=== PATIENT | male | born 1940 | race Caucasian/White ===

== ENCOUNTER → 2017-05-28 | Outpatient (CLI) | payer OTHER ==
[~2017-05-28] MED LIST: ASPI81TA28 PO; CYAN50TA2 PO; DOCU-94 PO; FURO40TA3 PO; INSDGI SC; LISI-461 PO; LUTE15CA PO; MISCTAB78 PO; NTRGSL/4 UT; TAMS0.4C38 PO; TNR50 PO
--- NOTE | 2017-05-28 10:00 | DIAGNOSTIC IMAGING REPORT ---
GI SERIES W/O KUB CLINICAL HISTORY: Epigastric pain. COMPARISON STUDY: None FLUOROSCOPY TIME: 2.1 minutes. NUMBER OF FLUOROSCOPIC IMAGES: 26 FINDINGS: The study was very difficult from a technical standpoint as the patient was nonmobile. There is disordered esophageal motility. No esophageal masses are visualized. No gastric masses are evident. There is no gastric outlet obstruction. The duodenal bulb appears normal. Ligament Treitz is located in the normal anatomical position. IMPRESSION: Technically limited study. No gastric or esophageal masses. Esophageal dysmotility. Electronically signed by: Tono Garcia M.D. 05/28/2017 9:59 AM Dictated Date/Time: 05/28/2017 9:57 AM
== END | disposition home or self-care (01) ==
LOC: C.RAD 09:08
PROVIDERS: ATTEND Family Medicine
DX: R13.10 Dysphagia, unspecified (principal)

== ENCOUNTER 2018-03-20 10:10 | Inpatient (IN) | payer OTHER ==
[~2018-03-20] VITALS: Ht 175.3 cm; Wt 121.0 kg
[2018-03-20] MEDS ORDERED: SODIUM CHLORIDE 0.9% 1000ML 500 ML IV ONE (10:20)
[2018-03-20] MEDS ORDERED: PIPERACILLIN/TAZOBACTAM 4.5 GM/100ML D5W IV STA (10:20)
--- NOTE | 2018-03-20 10:43 | DIAGNOSTIC IMAGING REPORT ---
CHEST ONE VIEW PORTABLE CLINICAL HISTORY: Sepsis COMPARISON STUDY: No previous studies for comparison. FINDINGS: There are postsurgical changes of midline sternotomy. The heart is at the upper limits of normal in size. There is borderline elevation right hemidiaphragm. There is no focal pulmonary consolidation. There is no failure. There are no pleural effusions.[ IMPRESSION: No active disease in the chest. Electronically signed by: Tono Garcia M.D. 03/20/2018 10:42 AM Dictated Date/Time: 03/20/2018 10:41 AM
[2018-03-20] MEDS ORDERED: ATOR-22 PO (10:46)
[2018-03-20] MEDS ORDERED: INSDGIPEN SC (10:46)
[2018-03-20 11:16] LABS: BASO % 0.2 %; BASO ABS # 0.02 K/uL (0-0.2); HEMATOCRIT 40.2 % (42-52); HEMOGLOBIN 13.5 g/dL (14.0-18.0); IG# 0.06 K/uL (0.00-0.02); LYMPH % 8.4 %; LYMPH ABS # 0.99 K/uL (1.2-3.4); MEAN CORPUSCULAR HEMOGLOBIN 31.9 pg (25-34); MEAN CORPUSCULAR HGB CONC 33.6 g/dl (32-36); MEAN PLATELET VOLUME 9.4 fL (7.4-10.4); MONO % 11.3 %; MONO ABS # 1.34 K/uL (0.11-0.59); NEUT % 79.6 %; NEUT ABS # 9.43 K/uL (1.4-6.5); PLATELET COUNT 212 K/uL (130-400); RED CELL DISTRIBUTION WIDTH CV 13.7 % (11.5-14.5); WHITE BLOOD COUNT 11.84 K/uL (4.8-10.8)
[2018-03-20 11:24] LABS: PTT PATIENT 25.2 SECONDS (21.0-31.0)
--- NOTE | 2018-03-20 11:36 | DIAGNOSTIC IMAGING REPORT ---
HEAD WITHOUT CONTRAST (CT) CLINICAL HISTORY: 77 years-old Male with confusion, fall. Acute confusion status post fall with head injury TECHNIQUE: Multiple axial CT images of the head were obtained without contrast. A dose lowering technique was utilized adhering to the principles of ALARA. CT DOSE: 1396.29 mGycm COMPARISON: CT head 04/16/2016. FINDINGS: Motion. Exam. No acute intracranial hemorrhage, midline shift, intracranial mass, hydrocephalus, territorial ischemia or abnormal extra-axial collection. Atrophy with mild ex vacuo ventriculomegaly and chronic microvascular ischemic changes redemonstrated. Cerebral vascular calcifications are noted. The calvarium is intact. The paranasal sinuses, mastoid air cells, and middle ear cavities are clear. IMPRESSION: No acute intracranial abnormality. The above report was generated using voice recognition software. It may contain grammatical, syntax or spelling errors. Electronically signed by: Jj Castillo M.D. 03/20/2018 11:34 AM Dictated Date/Time: 03/20/2018 11:32 AM
--- NOTE | 2018-03-20 11:37 | DIAGNOSTIC IMAGING REPORT ---
LUMBAR SPINE WITHOUT CLINICAL HISTORY: Back pain following fall. COMPARISON STUDY: Lumbar spine CT April 16, 2016. TECHNIQUE: Axial images of the lumbar spine were obtained without IV contrast. Sagittal and coronal reconstructions were viewed. FINDINGS: Exam is moderately compromised by artifact. Grade one anterolisthesis of L5 on S1 is unchanged since CT of April 16, 2016. This is due to bilateral L5 pars defects. Old mild compression deformity involving the inferior endplate of L2 is noted. There is extensive anterior osteophytosis. No acute lumbar spine fracture is identified. Central canal and neural foramen are suboptimally assessed by CT. No paravertebral hematomas identified. A probable small left renal calculus is noted without hydronephrosis. Sacroiliac joints are intact. IMPRESSION: 1. No acute lumbar spine fracture or subluxation identified. 2. Study mildly compromised by artifact. 3. Old L2 compression fracture with minimal loss of vertebral body height. 4. Grade I anterolisthesis of L5 on S1 due to bilateral L5 pars defects. This is unchanged. 5. Moderate multilevel degenerative disc disease and severe multilevel facet arthrosis of the lumbar spine. Electronically signed by: Avinash Ball M.D. 03/20/2018 11:36 AM Dictated Date/Time: 03/20/2018 11:30 AM
[2018-03-20 11:39] LABS: ALBUMIN 3.8 gm/dl (3.4-5.0); CALCIUM 9.5 mg/dl (8.5-10.1); CREATININE 1.23 mg/dl (0.60-1.40); POTASSIUM 4.2 mmol/L (3.5-5.1); TOTAL PROTEIN 8.3 gm/dl (6.4-8.2)
[2018-03-20] MEDS ORDERED: MoRPHine SULFATE 4 MG/ML 1 ML CARP\\VIAL IV STA (11:50)
[2018-03-20] MEDS ORDERED: SODIUM CHLORIDE 0.9% 500ML 500 ML IV STA (12:28)
[2018-03-20] MEDS ORDERED: ONDANSETRON INJ 2 MG/ML 2 ML VIAL IV PRN (13:30)
[2018-03-20] MEDS ORDERED: CONSULT PHARMACY STA (13:52)
[2018-03-20] MEDS ORDERED: ATORVASTATIN 20 MG TAB PO ONE (13:56)
[2018-03-20] MEDS ORDERED: LISINOPRIL 10 MG TAB PO ONE (13:56)
[2018-03-20] MEDS ORDERED: ASPIRIN 81 MG ECTAB PO ONE (13:56)
[2018-03-20] MEDS ORDERED: TAMSULOSIN HCL 0.4 MG CAP PO ONE (13:56)
[2018-03-20] MEDS ORDERED: GLUCAGON FOR INJ 1 MG VIAL SQ PRN (14:00)
[2018-03-20] MEDS ORDERED: CARBOHYDRATES FOR HYPOGLYCEMIA PO PRN (14:00)
[2018-03-20] MEDS ORDERED: DEXTROSE 50% 50 ML SYR IV PRN (14:00)
[2018-03-20] MEDS ORDERED: GLUCOSE 10 TABS/TUBE PO PRN (14:00)
[2018-03-20] MEDS ORDERED: GLUCOSE 40% GEL 15 GM TUBE PO PRN (14:00)
[2018-03-20] MEDS ORDERED: DOCUSATE SODIUM 100 MG CAP PO PRN (14:00)
[2018-03-20 14:18] VITALS: O2SAT 96; Ht 175.3 cm; Wt 121.0 kg
[2018-03-20] MEDS ORDERED: PIPERACILL/TAZOBAC CONSULT ACTIVE PRN (14:30)
[2018-03-20] MEDS ORDERED: VANCOMYCIN CONSULT ACTIVE PRN (14:30)
[2018-03-20] MEDS ORDERED: VANCOMYCIN IV 2,750 MG in SODIUM CHLORIDE 0.9% 500ML 500 ML IV ONE (14:30)
[2018-03-20 14:40] VITALS: BP 184/69; PULSE 77; TEMP 36.7; O2SAT 96
--- NOTE | 2018-03-20 14:57 | Pharmacy Progress Note ---
Pharmacy Abx Initial Consult Date of Service Mar 20, 2018. Pharmacy Dosing Scope Date of Consult: 03/20/18 Consultation requested by: BLADIMIR [facility] is consulted to initiate Zosyn and Vancomycin IV dosing therapy, order appropriate labs and adjust drug dose/frequency. Subjective The patient is a 77 year old male admitted on Mar 20, 2018 at 13:32. Objective Height (Feet): 5 Height (Inches): 9.00 Weight (Kilograms): 121.000 Vital Signs (Past 12Hrs) Vital Signs Past 12 Hours Date Time Temp Pulse Resp B/P (MAP) Pulse Ox O2 Delivery O2 Flow Rate FiO2 03/20/18 14:18 96 Room Air 03/20/18 14:02 68 24 146/78 96 Room Air 03/20/18 11:40 73 16 176/94 93 Room Air 03/20/18 10:29 78 03/20/18 10:27 94 Room Air 03/20/18 10:19 36.8 82 18 170/111 95 Room Air Lab Results (24Hrs) Laboratory Tests (24 Hours) Test 03/20/18 10:55 White Blood Count 11.84 K/uL (4.8-10.8) H Red Blood Count 4.23 M/uL (4.7-6.1) L Hemoglobin 13.5 g/dL (14.0-18.0) L Hematocrit 40.2 % (42-52) L Mean Corpuscular Volume 95.0 fL (80-100) Mean Corpuscular Hemoglobin 31.9 pg (25-34) Mean Corpuscular Hemoglobin Concent 33.6 g/dl (32-36) Platelet Count 212 K/uL (130-400) Mean Platelet Volume 9.4 fL (7.4-10.4) Neutrophils (%) (Auto) 79.6 % Lymphocytes (%) (Auto) 8.4 % Monocytes (%) (Auto) 11.3 % Eosinophils (%) (Auto) 0.0 % Basophils (%) (Auto) 0.2 % Neutrophils # (Auto) 9.43 K/uL (1.4-6.5) H Lymphocytes # (Auto) 0.99 K/uL (1.2-3.4) L Monocytes # (Auto) 1.34 K/uL (0.11-0.59) H Eosinophils # (Auto) 0.00 K/uL (0-0.5) Basophils # (Auto) 0.02 K/uL (0-0.2) Total Creatine Kinase 344 U/L (39-308) H Micro Results Date/Time Source Procedure Growth Status 03/20/18 10:55 Blood Blood Culture Pending Received 03/20/18 10:50 Blood Blood Culture Pending Received Assessment & Plan Assessment 77 year old male admitted with cellulitis Plan IV Zosyn and Vancomycin for treatment of cellulitis/SSTI, blood cultures pending Vancomycin IV * Loading dose: 2750 mg (~25 mg/kg) * Maintenance dose: 1250 mg IV (~11 mg/kg) every 14 hours * Estimated PK Parameters: ke: 0.056 hr-1, T1/2: ~12hr * Goal trough level for 15 to 20 mcg/mL * Trough level ordered for 03/22/2018 before 0800 dose, but may obtain sooner if pt appears to be accumulating. * A less than traditional dose has been selected due to likelihood of drug accumulation in obese patient (BMI >35 kg/m2) Piperacillin/tazobactam * 4.5 g bolus administered over 30 minutes, then 4.5 g IV extended infusion every 8 hours for CrCl greater than 20 mL/min * Aggressive dosing selected due to BMI >35 kg/m2 Pharmacy will continue to follow and will adjust dose/frequency as necessary. Thank you.
[2018-03-20 15:27] VITALS: BP 149/77; PULSE 66; TEMP 36.4; O2SAT 96
[2018-03-20] MEDS: HEPARIN SOD 5000 UNIT/0.5 ML CARP SQ SCH ×2 (15:37→21:20)
[2018-03-20] MEDS: PIPERACILL/TAZOBAC IV 4.5 GM in DEXTROSE 5% 100ML 100 ML IV SCH ×2 (15:39→23:47)
[2018-03-20 16:00] VITALS: O2SAT 91
--- NOTE | 2018-03-20 16:06 | History and Physical ---
History & Physical Date & Time of Service: Mar 20, 2018 at 15:50 Chief Complaint: Fall Primary Care Physician: José Manuel Chisholm M.D. History of Present Illness 69-year-old male who presents the ED after a fall. Patient reports he was getting ready to go to bed last evening in his recliner chair where he typically sleeps and slipped on the carpeting and fell over the arm of the chair into the fireplace. He denies associated lightheadedness, dizziness, syncopal event. He did not strike his head. Patient reports he was unable to get up. He crawled around on the floor however was still unable to stand. He did not call for help. His found him this morning. About 2 weeks ago, patient was at the beach and he suffered a sunburn to his left leg. He reports it blistered and he was picking at the skin. He reports he has not felt well since having the sunburn. His leg has been painful. He denies having fevers and chills. He reports some chest wall pain after the fall. He denies shortness of breath. No abdominal pain, nausea, vomiting, diarrhea. He denies any urinary symptoms. In the ED, patient's imaging is negative for acute findings. Exam is notable for a left lower extremity cellulitis. WBC is 11.8K and vitals are stable. Patient was given IVF, IV morphine, IV Zosyn. Past Medical/Surgical History Medical Problems: (1) BPH (benign prostatic hyperplasia) Status: Chronic (2) CAD (coronary artery disease) Status: Chronic (3) CKD (chronic kidney disease), stage III Status: Chronic (4) Diastolic CHF due to valvular disease Status: Chronic (5) DM type 2 (diabetes mellitus, type 2) Status: Chronic (6) Hyperlipidemia Status: Chronic (7) Hypertension Status: Chronic Surgical Problems: (1) History of cataract surgery Status: Chronic (2) History of total left hip replacement Status: Chronic (3) History of total right hip replacement Status: Chronic (4) S/P aortic valve replacement with bioprosthetic valve Status: Chronic (5) S/P CABG x 5 Permanent Comment: 2016 Status: Chronic Family History Noncontributory secondary to patient's advanced age Social History Smoking Status: Never Smoker Alcohol Use: none Marital Status: Housing status: lives with family Immunizations History of Influenza Vaccine: Yes Influenza Vaccine Date: May 09, 2017 History of Tetanus Vaccine?: Yes Tetanus Immunization Date: Oct 03, 2004 History of Pneumococcal: Yes Pneumococcal Date: Oct 27, 2014 Allergies Coded Allergies: Cephalexin (Unverified Allergy, Intermediate, RASH, 03/20/18) Nifedipine (Unverified Allergy, Intermediate, GI SYMPTOMS, 03/20/18) Home Medications Scheduled Aspirin (Aspirin Ec), 162 MG PO DAILY Atenolol (Atenolol), 50 MG PO DAILY Atorvastatin (Lipitor), 20 MG PO DAILY Cyanocobalamin (Vitamin B-12), 500 MG PO DAILY Furosemide (Lasix), 40 MG PO Q2D Insulin Glargine (Lantus Solostar), 20 UNITS SC HS Lisinopril (Lisinopril), 10 MG PO DAILY Lutein-Zeaxanthin (Lutein), 1 CAP PO DAILY Misc Natural Products (Osteo Bi-Flex Advanced Do), 1 CAP PO DAILY Nitroglycerin (Nitrostat), 0.4 MG UT PRN Tamsulosin Hcl (Flomax), 0.4 MG PO DAILY Scheduled PRN Docusate Sodium (Colace), 100 MG PO BID PRN for Constipation Review of Systems ROS per HPI, all other systems reviewed and negative Physical Exam Vital Signs Date Time Temp Pulse Resp B/P (MAP) Pulse Ox O2 Delivery O2 Flow Rate FiO2 03/20/18 15:27 36.4 66 20 149/77 (101) 96 Nasal Cannula 2.0 03/20/18 14:40 36.7 77 18 184/69 (107) 96 Nasal Cannula 03/20/18 14:18 96 Room Air 03/20/18 14:02 68 24 146/78 96 Room Air 03/20/18 11:40 73 16 176/94 93 Room Air 03/20/18 10:29 78 03/20/18 10:27 94 Room Air 03/20/18 10:19 36.8 82 18 170/111 95 Room Air General Appearance: WD/WN, no apparent distress Head: normocephalic, atraumatic Eyes: normal inspection, EOMI, sclerae normal ENT: hearing grossly normal, + pertinent finding (Mucous members moist) Neck: supple, no JVD, trachea midline Respiratory/Chest: no respiratory distress, + decreased breath sounds Cardiovascular: regular rate, rhythm, normal peripheral pulses, + pertinent finding (+1-2 edema BLE) Abdomen/GI: normal bowel sounds, non tender, soft, no organomegaly Extremities/Musculoskelatal: normal inspection, no calf tenderness, normal capillary refill Neurologic/Psych: no motor/sensory deficits, alert, normal mood/affect, oriented x 3 Skin: warm/dry, + pertinent finding (Erythema noted to the left lower extremity extending from the ankle to the knee, extremity warm to touch, dried scabbed over wounds noted to the ankle area without drainage) Diagnostics Laboratory Results Results Past 24 Hours Test 03/20/18 10:55 03/20/18 12:57 Range/Units White Blood Count 11.84 4.8-10.8 K/uL Red Blood Count 4.23 4.7-6.1 M/uL Hemoglobin 13.5 14.0-18.0 g/dL Hematocrit 40.2 42-52 % Mean Corpuscular Volume 95.0 80-100 fL Mean Corpuscular Hemoglobin 31.9 25-34 pg Mean Corpuscular Hemoglobin Concent 33.6 32-36 g/dl Platelet Count 212 130-400 K/uL Mean Platelet Volume 9.4 7.4-10.4 fL Neutrophils (%) (Auto) 79.6 % Lymphocytes (%) (Auto) 8.4 % Monocytes (%) (Auto) 11.3 % Eosinophils (%) (Auto) 0.0 % Basophils (%) (Auto) 0.2 % Neutrophils # (Auto) 9.43 1.4-6.5 K/uL Lymphocytes # (Auto) 0.99 1.2-3.4 K/uL Monocytes # (Auto) 1.34 0.11-0.59 K/uL Eosinophils # (Auto) 0.00 0-0.5 K/uL Basophils # (Auto) 0.02 0-0.2 K/uL RDW Standard Deviation 47.0 36.4-46.3 fL RDW Coefficient of Variation 13.7 11.5-14.5 % Immature Granulocyte % (Auto) 0.5 % Immature Granulocyte # (Auto) 0.06 0.00-0.02 K/uL Prothrombin Time 10.8 9.0-12.0 SECONDS Prothromb Time International Ratio 1.0 0.9-1.1 Activated Partial Thromboplast Time 25.2 21.0-31.0 SECONDS Partial Thromboplastin Ratio 1.0 Urine Color YELLOW Urine Appearance CLEAR CLEAR Urine pH 6.0 4.5-7.5 Urine Specific [place] 1.018 1.000-1.030 Urine Protein TRACE NEG Urine Glucose (UA) NEG NEG Urine Ketones TRACE NEG Urine Occult Blood NEG NEG Urine Nitrite NEG NEG Urine Bilirubin NEG NEG Urine Urobilinogen NEG NEG Urine Leukocyte Esterase NEG NEG Urine WBC (Auto) 1-5 0-5 /hpf Urine RBC (Auto) 0-4 0-4 /hpf Urine Hyaline Casts (Auto) 1-5 0-5 /lpf Urine Epithelial Cells (Auto) 5-10 0-5 /lpf Urine Bacteria (Auto) NEG NEG Sodium Level 143 136-145 mmol/L Potassium Level 4.2 3.5-5.1 mmol/L Chloride Level 104 98-107 mmol/L Carbon Dioxide Level 34 21-32 mmol/L Anion Gap 5.0 3-11 mmol/L Blood Urea Nitrogen 22 7-18 mg/dl Creatinine 1.23 0.60-1.40 mg/dl Est Creatinine Clear Calc Drug Dose 63.6 ml/min Estimated GFR () 64.8 Estimated GFR (Non- 55.9 BUN/Creatinine Ratio 17.9 10-20 Random Glucose 102 70-99 mg/dl Calcium Level 9.5 8.5-10.1 mg/dl Magnesium Level 2.0 1.8-2.4 mg/dl Total Bilirubin 0.7 0.2-1 mg/dl Aspartate Amino Transf (AST/SGOT) 35 15-37 U/L Alanine Aminotransferase (ALT/SGPT) 20 12-78 U/L Alkaline Phosphatase 85 45-117 U/L Total Creatine Kinase 344 39-308 U/L Total Protein 8.3 6.4-8.2 gm/dl Albumin 3.8 3.4-5.0 gm/dl Globulin 4.5 2.5-4.0 gm/dl Albumin/Globulin Ratio 0.9 0.9-2 Chemistry Specimen Hemolysis Bedside Lactic Acid Venous 0.99 0.90-1.70 mmol/L Microbiology Results 03/20/18 Blood Culture, Received Pending 03/20/18 Blood Culture, Received Pending Diagnostic Radiology LUMBAR SPINE CT IMPRESSION: 1. No acute lumbar spine fracture or subluxation identified. 2. Study mildly compromised by artifact. 3. Old L2 compression fracture with minimal loss of vertebral body height. 4. Grade I anterolisthesis of L5 on S1 due to bilateral L5 pars defects. This is unchanged. 5. Moderate multilevel degenerative disc disease and severe multilevel facet arthrosis of the lumbar spine. HEAD CT IMPRESSION: No acute intracranial abnormality CXR IMPRESSION: No active disease in the chest. Impression Assessment and Plan GENERALIZED WEAKNESS, MECHANICAL FALL LEFT LOWER EXTREMITY CELLULITIS -Admit to [facility] -Patient presenting from home after a fall last night and being unable to get up off the floor; was at the beach approximately 2 weeks ago and suffered a sunburn to his left lower extremity and has not felt well since that time -In the ED, imaging negative for acute findings -Significant erythema noted to left lower extremity which is warm to touch -Dried, scabbed over wounds noted to the left ankle that are not currently draining -Do not suspect sepsis; currently afebrile, minimal leukocytosis, negative lactic acid -S/P Zosyn in the ED, will continue with and add on vancomycin -PT/OT evaluations HISTORY OF CAD -Stable, no reports of chest pain -Continue aspirin, statin, beta-katie DIASTOLIC CHF SECONDARY TO VALVULAR DISEASE -Appears euvolemic -Continue home dose of furosemide HISTORY OF BIOPROSTHETIC AORTIC VALVE REPLACEMENT DM TYPE II -Hgb A1c 6.1 04/2017 -Lantus and NovoLog per protocol while hospitalized HYPERTENSION -BP controlled, continue atenolol and lisinopril BPH -Continue tamsulosin DVT PROPHYLAXIS -SQ heparin CODE STATUS -Patient is a full code as per my discussion with him. DISPOSITION -In my clinical judgment this beneficiary meets acute admission criteria, established by [facility], that includes being hospitalized through two midnights. ADDENDUM: This is a 77 year old male with a past medical history of CAD s/p CABG x5, hx. of bioprosthetic aortic valve replacement, DM2, HTN, HLD - presents with a fall. At baseline, he is supposed to be using a walker, but he was not at the time. States he got up at night and ambulated to the bathroom; when he came back, he states he missed the chair that he sleeps in and fell. States he sleeps in a recliner due to back pain. On presentation here, he had erythema LLE, warm to touch. States he had sunburn on his skin and he was picking at his skin afterwards. Plan: Vanco + Zosyn for now, monitor LLE cellulitic changes PT/OT due to ambulation issues may need placement depending on how he does with therapy Advanced Directives Existing Living Will: No Existing Power of Taxicab Dispatcher: No Resuscitation Status VTE Prophylaxis Will order VTE Prophylaxis: Yes
--- NOTE | 2018-03-20 16:20 | EMERGENCY ROOM VISIT NOTE ---
History Report prepared by Ramone: Hitesh Hernandez Under the Supervision of: Dr. Sage Escalante M.D. First contact with patient: 10:12 Stated Complaint: FALL History of Present Illness The patient is a 77 year old male who presents to the Emergency Room with complaints of a resolved fall that occurred last night. EMS reports that the patient fell last night and was found by his this morning. She reports that the patient has become increasingly unsteady. She notes that the patient refuses to use his walker and has been only using a cane. She reports increased confusion and hallucinations in the patient. The patient reports that he attempted to sit into a recliner and missed, hitting half of his body on the recliner and falling. He states that he was unable to stand up and remained on the floor until the morning, when his found him. The patient reports that his lower back is currently sore. He notes that he was experiencing chills on the way to the ER, but states that he always has chills. The patient denies vomiting or diarrhea. The patient reports history of a stroke. He states that it has been a couple months since his previous fall. Source of History: patient, EMS Onset: last night Position: other (general) Quality: other (fall) Timing: resolved Associated Symptoms: + chills, + back pain (lower), No vomiting, No diarrhea Review of Systems See HPI for pertinent positives & negatives. A total of 10 systems reviewed and were otherwise negative. Past Medical & Surgical Medical Problems: (1) BPH (benign prostatic hyperplasia) (2) CAD (coronary artery disease) (3) CKD (chronic kidney disease), stage III (4) Diastolic CHF due to valvular disease (5) DM type 2 (diabetes mellitus, type 2) (6) Hyperlipidemia (7) Hypertension Surgical Problems: (1) History of cataract surgery (2) History of total left hip replacement (3) History of total right hip replacement (4) S/P aortic valve replacement with bioprosthetic valve (5) S/P CABG x 5 Family History Cancer FH: heart disease Hypertension Social History Smoking Status: Never Smoker Drug Use: none Marital Status: Housing Status: lives with family Occupation Status: retired Current/Historical Medications Scheduled Aspirin (Aspirin Ec), 162 MG PO DAILY Atenolol (Atenolol), 50 MG PO DAILY Atorvastatin (Lipitor), 20 MG PO DAILY Cyanocobalamin (Vitamin B-12), 500 MG PO DAILY Furosemide (Lasix), 40 MG PO Q2D Insulin Glargine (Lantus Solostar), 20 UNITS SC HS Lisinopril (Lisinopril), 10 MG PO DAILY Lutein-Zeaxanthin (Lutein), 1 CAP PO DAILY Misc Natural Products (Osteo Bi-Flex Advanced Do), 1 CAP PO DAILY Nitroglycerin (Nitrostat), 0.4 MG UT PRN Tamsulosin Hcl (Flomax), 0.4 MG PO DAILY Scheduled PRN Docusate Sodium (Colace), 100 MG PO BID PRN for Constipation Allergies Coded Allergies: Cephalexin (Unverified Allergy, Intermediate, RASH, 03/20/18) Nifedipine (Unverified Allergy, Intermediate, GI SYMPTOMS, 03/20/18) Physical Exam Vital Signs Date Time Temp Pulse Resp B/P (MAP) Pulse Ox O2 Delivery O2 Flow Rate FiO2 03/20/18 11:40 73 16 176/94 93 Room Air 03/20/18 10:29 78 03/20/18 10:27 94 Room Air 03/20/18 10:19 36.8 82 18 170/111 95 Room Air Physical Exam GENERAL: Patient is in no acute distress. HEENT: No acute trauma, normocephalic atraumatic, mucous membranes moist, no nasal congestion, no scleral icterus. NECK: No stridor, no adenopathy, no meningismus, trachea is midline. LUNGS: Clear to auscultation bilaterally, no wheeze, no rhonchi, breath sounds equal. HEART: Without murmurs gallops or rubs, regular rate and rhythm. ABDOMEN: Soft, nontender, bowel sounds positive, no hernias, no peritonitis. EXTREMITIES: No cyanosis. Moderate bilateral pedal edema with left lower extremity erythema from foot to knee. No drainage. Some warmth is present. Full range of motion of all the joints without pain or difficulty, no signs for acute trauma. BACK: No lumbar contusions, no focal bony tenderness NEUROLOGIC: Oriented x 3, no acute motor or sensory deficits, no focal weakness. SKIN: No rash, no jaundice, no diaphoresis. Medical Decision & Procedures ER Provider Diagnostic Interpretation: Radiology results as stated below per my review and radiologist interpretation: CHEST ONE VIEW PORTABLE CLINICAL HISTORY: Sepsis COMPARISON STUDY: No previous studies for comparison. FINDINGS: There are postsurgical changes of midline sternotomy. The heart is at the upper limits of normal in size. There is borderline elevation right hemidiaphragm. There is no focal pulmonary consolidation. There is no failure. There are no pleural effusions.[ IMPRESSION: No active disease in the chest. Electronically signed by: Tono Garcia M.D. 03/20/2018 10:42 AM Dictated Date/Time: 03/20/2018 10:41 AM HEAD WITHOUT CONTRAST (CT) CLINICAL HISTORY: 77 years-old Male with confusion, fall. Acute confusion status post fall with head injury TECHNIQUE: Multiple axial CT images of the head were obtained without contrast. A dose lowering technique was utilized adhering to the principles of ALARA. CT DOSE: 1396.29 mGycm COMPARISON: CT head 04/16/2016. FINDINGS: Motion. Exam. No acute intracranial hemorrhage, midline shift, intracranial mass, hydrocephalus, territorial ischemia or abnormal extra-axial collection. Atrophy with mild ex vacuo ventriculomegaly and chronic microvascular ischemic changes redemonstrated. Cerebral vascular calcifications are noted. The calvarium is intact. The paranasal sinuses, mastoid air cells, and middle ear cavities are clear. IMPRESSION: No acute intracranial abnormality. The above report was generated using voice recognition software. It may contain grammatical, syntax or spelling errors. Electronically signed by: Jj Castillo M.D. 03/20/2018 11:34 AM Dictated Date/Time: 03/20/2018 11:32 AM LUMBAR SPINE WITHOUT CLINICAL HISTORY: Back pain following fall. COMPARISON STUDY: Lumbar spine CT April 16, 2016. TECHNIQUE: Axial images of the lumbar spine were obtained without IV contrast. Sagittal and coronal reconstructions were viewed. FINDINGS: Exam is moderately compromised by artifact. Grade one anterolisthesis of L5 on S1 is unchanged since CT of April 16, 2016. This is due to bilateral L5 pars defects. Old mild compression deformity involving the inferior endplate of L2 is noted. There is extensive anterior osteophytosis. No acute lumbar spine fracture is identified. Central canal and neural foramen are suboptimally assessed by CT. No paravertebral hematomas identified. A probable small left renal calculus is noted without hydronephrosis. Sacroiliac joints are intact. IMPRESSION: 1. No acute lumbar spine fracture or subluxation identified. 2. Study mildly compromised by artifact. 3. Old L2 compression fracture with minimal loss of vertebral body height. 4. Grade I anterolisthesis of L5 on S1 due to bilateral L5 pars defects. This is unchanged. 5. Moderate multilevel degenerative disc disease and severe multilevel facet arthrosis of the lumbar spine. Electronically signed by: Avinash Ball M.D. 03/20/2018 11:36 AM Dictated Date/Time: 03/20/2018 11:30 AM Laboratory Results 03/20/18 10:55 Red Blood Count 4.23, Mean Corpuscular Volume 95.0, Mean Corpuscular Hemoglobin 31.9, Mean Corpuscular Hemoglobin Concent 33.6, Mean Platelet Volume 9.4, Neutrophils (%) (Auto) 79.6, Lymphocytes (%) (Auto) 8.4, Monocytes (%) (Auto) 11.3, Eosinophils (%) (Auto) 0.0, Basophils (%) (Auto) 0.2, Neutrophils # (Auto ) 9.43, Lymphocytes # (Auto) 0.99, Monocytes # (Auto) 1.34, Eosinophils # (Auto ) 0.00, Basophils # (Auto) 0.02 03/20/18 10:55 Test 03/20/18 10:55 03/20/18 12:57 White Blood Count 11.84 K/uL (4.8-10.8) Red Blood Count 4.23 M/uL (4.7-6.1) Hemoglobin 13.5 g/dL (14.0-18.0) Hematocrit 40.2 % (42-52) Mean Corpuscular Volume 95.0 fL (80-100) Mean Corpuscular Hemoglobin 31.9 pg (25-34) Mean Corpuscular Hemoglobin Concent 33.6 g/dl (32-36) Platelet Count 212 K/uL (130-400) Mean Platelet Volume 9.4 fL (7.4-10.4) Neutrophils (%) (Auto) 79.6 % Lymphocytes (%) (Auto) 8.4 % Monocytes (%) (Auto) 11.3 % Eosinophils (%) (Auto) 0.0 % Basophils (%) (Auto) 0.2 % Neutrophils # (Auto) 9.43 K/uL (1.4-6.5) Lymphocytes # (Auto) 0.99 K/uL (1.2-3.4) Monocytes # (Auto) 1.34 K/uL (0.11-0.59) Eosinophils # (Auto) 0.00 K/uL (0-0.5) Basophils # (Auto) 0.02 K/uL (0-0.2) RDW Standard Deviation 47.0 fL (36.4-46.3) RDW Coefficient of Variation 13.7 % (11.5-14.5) Immature Granulocyte % (Auto) 0.5 % Immature Granulocyte # (Auto) 0.06 K/uL (0.00-0.02) Prothrombin Time 10.8 SECONDS (9.0-12.0) Prothromb Time International Ratio 1.0 (0.9-1.1) Activated Partial Thromboplast Time 25.2 SECONDS (21.0-31.0) Partial Thromboplastin Ratio 1.0 Urine Color YELLOW Urine Appearance CLEAR (CLEAR) Urine pH 6.0 (4.5-7.5) Urine Specific [place] 1.018 (1.000-1.030) Urine Protein TRACE (NEG) Urine Glucose (UA) NEG (NEG) Urine Ketones TRACE (NEG) Urine Occult Blood NEG (NEG) Urine Nitrite NEG (NEG) Urine Bilirubin NEG (NEG) Urine Urobilinogen NEG (NEG) Urine Leukocyte Esterase NEG (NEG) Urine WBC (Auto) 1-5 /hpf (0-5) Urine RBC (Auto) 0-4 /hpf (0-4) Urine Hyaline Casts (Auto) 1-5 /lpf (0-5) Urine Epithelial Cells (Auto) 5-10 /lpf (0-5) Urine Bacteria (Auto) NEG (NEG) Anion Gap 5.0 mmol/L (3-11) Est Creatinine Clear Calc Drug Dose 63.6 ml/min Estimated GFR () 64.8 Estimated GFR (Non- 55.9 BUN/Creatinine Ratio 17.9 (10-20) Calcium Level 9.5 mg/dl (8.5-10.1) Magnesium Level 2.0 mg/dl (1.8-2.4) Total Bilirubin 0.7 mg/dl (0.2-1) Aspartate Amino Transf (AST/SGOT) 35 U/L (15-37) Alanine Aminotransferase (ALT/SGPT) 20 U/L (12-78) Alkaline Phosphatase 85 U/L (45-117) Total Creatine Kinase 344 U/L (39-308) Total Protein 8.3 gm/dl (6.4-8.2) Albumin 3.8 gm/dl (3.4-5.0) Globulin 4.5 gm/dl (2.5-4.0) Albumin/Globulin Ratio 0.9 (0.9-2) Chemistry Specimen Hemolysis Bedside Lactic Acid Venous 0.99 mmol/L (0.90-1.70) Laboratory results reviewed by me. Medications Administered Medications (Trade) Dose Ordered Sig/Heidi Route Start Time Stop Time Status Last Admin Dose Admin Sodium Chloride 500 ml @ 999 mls/hr Q31M ONCE IV 03/20/18 10:20 03/20/18 10:50 DC 03/20/18 11:45 999 MLS/HR Piperacillin Sod/ Tazobactam Sod (Zosyn Iv) 4.5 gm ONE STAT IV 03/20/18 10:20 03/20/18 10:22 DC 03/20/18 11:50 4.5 GM Morphine Sulfate (MoRPHine SULFATE INJ) 4 mg NOW STAT IV 03/20/18 11:50 03/20/18 11:52 DC 03/20/18 12:24 4 MG Sodium Chloride 500 ml @ 999 mls/hr Q31M STAT IV 03/20/18 12:28 03/20/18 12:58 DC 03/20/18 12:28 999 MLS/HR ECG Per My Interpretation Indication: weakness Rate (beats per minute): 78 Rhythm: normal sinus Findings: other (RBBB. No ST elevation. No PVCs.) ED Course 1012: The patient was evaluated in room B3B. A complete history and physical exam was performed. 1020: Ordered Zosyn 4.5 gm IV, Sodium Chloride 500 ml @ 999 mls/hr IV 1150: Ordered Morphine Sulfate 4 mg IV 1228: Ordered Sodium Chloride 500 ml @ 999 mls/hr IV 1233: I consulted BLADIMIR Smallwood - [facility] Hospitalist. She will reevaluate the patient for hospitalization. 1235: I updated the patient with the current plan. Medical Decision Differential diagnosis: Sepsis or bacteremia, cellulitis, dehydration, electrolyte imbalance, anemia, TN, stroke, lumbar fracture, intracranial bleeding There is a mild leukocytosis, this could be consistent with infection. No worrisome anemia. No significant electrolyte abnormality, kidney failure or hepatitis. Lactic acid level is not elevated making sepsis less likely. Brain CT shows no acute bleed or mass-effect. Lumbar spine CT shows no acute fracture. Chest film does not show pneumonia or CHF. EKG shows a sinus rhythm , no acute ischemia. Urinalysis does not show evidence for infection. Total CK is not suggestive of rhabdomyolysis. Blood cultures are pending. On exam, the patient does appear to have a left lower extremity cellulitis. Patient presents with weakness. He had fallen last night and could not get up on his own. He has a cellulitis and I think this has led to his weakness and fatigue. He requires a hospital stay. I did speak to the patient and case management. The on-call hospitalist was consulted. The patient was given IV saline, he received IV morphine for pain. He was given IV Zosyn as antibiotic coverage. He is currently resting comfortably. Medication Reconcilliation Current Medication List: was personally reviewed by me Blood Pressure Screening Patient's blood pressure: Elevated blood pressure referred to hospitalist Consults Time Called: 1229 Consulting Physician: BLADIMIR Smallwood Returned Call: 1233 I consulted BLADIMIR Smallwood. She will reevaluate the patient for hospitalization. Impression Primary Impression: Change in mental status Additional Impressions: Low back pain Left leg cellulitis Fall Scribe Attestation The scribe's documentation has been prepared under my direction and personally reviewed by me in its entirety. I confirm that the note above accurately reflects all work, treatment, procedures, and medical decision making performed by me. Departure Information Dispostion Being Evaluated By Hospitalist Problem Qualifiers
[2018-03-20] MEDS: INSULIN ASPART 100 UNITS/ML 3 ML PEN SC SCH ×2 (16:30→21:00)
[2018-03-20] MEDS: INSULIN GLARGINE SOLOSTAR 100 UNITS/ML 3 ML PEN SC SCH (21:20)
[2018-03-20 23:22] VITALS: BP 125/73; PULSE 67; TEMP 37; O2SAT 93
[2018-03-21] MEDS: ACETAMINOPHEN 325 MG TAB PO PRN ×3 (03:43→19:31)
[2018-03-21] MEDS ORDERED: VANCOMYCIN IV 1,250 MG in SODIUM CHLORIDE 0.9% 250ML 250 ML IV SCH (04:00)
[2018-03-21] MEDS ORDERED: VANCOMYCIN IV 1,250 MG in SODIUM CHLORIDE 0.9% 500ML 500 ML IV SCH (04:00)
[2018-03-21] MEDS: HEPARIN SOD 5000 UNIT/0.5 ML CARP SQ SCH ×3 (06:02→20:58)
[2018-03-21] MEDS: INSULIN ASPART 100 UNITS/ML 3 ML PEN SC SCH ×4 (06:30→20:57)
[2018-03-21 07:30] VITALS: BP 116/69; PULSE 58; TEMP 36.6; O2SAT 94
[2018-03-21 07:40] LABS: HEMATOCRIT 34.1 % (42-52); MEAN CELL VOLUME 97.4 fL (80-100); MEAN CORPUSCULAR HEMOGLOBIN 31.4 pg (25-34); MEAN CORPUSCULAR HGB CONC 32.3 g/dl (32-36); MEAN PLATELET VOLUME 9.3 fL (7.4-10.4); PLATELET COUNT 182 K/uL (130-400); RED CELL DISTRIBUTION WIDTH CV 14.2 % (11.5-14.5); RED CELL DISTRIBUTION WIDTH SD 50.5 fL (36.4-46.3); WHITE BLOOD COUNT 7.55 K/uL (4.8-10.8)
[2018-03-21] MEDS: TAMSULOSIN HCL 0.4 MG CAP PO SCH (07:49)
[2018-03-21] MEDS: LISINOPRIL 10 MG TAB PO SCH (07:49)
[2018-03-21] MEDS: PIPERACILL/TAZOBAC IV 4.5 GM in DEXTROSE 5% 100ML 100 ML IV SCH (07:50)
[2018-03-21] MEDS: ATORVASTATIN 20 MG TAB PO SCH (07:50)
[2018-03-21] MEDS: ASPIRIN 81 MG ECTAB PO SCH (07:50)
[2018-03-21] MEDS: CYANOCOBALAMIN 500 MCG TAB (VIT B-12) PO SCH (07:50)
[2018-03-21 08:00] VITALS: O2SAT 94
[2018-03-21 08:08] LABS: CALCIUM 8.2 mg/dl (8.5-10.1); CREATININE 1.2 mg/dl (0.60-1.40); POTASSIUM 3.8 mmol/L (3.5-5.1)
[2018-03-21] MEDS ORDERED: NATURAL PRODUCTS PO SCH (09:00)
[2018-03-21] MEDS ORDERED: FUROSEMIDE 40 MG TAB PO SCH (09:00)
[2018-03-21] MEDS ORDERED: NON-FORMULARY MEDICATION (Lutein-Zeaxanthin (Lutein) 1 CAP) PO SCH (09:00)
[2018-03-21 09:13] LABS: HEMOGLOBIN A1C 6.5 % (4.5-5.6)
[2018-03-21] MEDS: AMOXICILLIN/CLAVULANATE TAB 875 MG TAB PO SCH ×2 (10:28→16:49)
--- NOTE | 2018-03-21 12:08 | Hospitalist Progress Note ---
Hospitalist Progress Note Date of Service Mar 21, 2018. (Letitia Lombardo CRNP) Attending addendum: The patient was seen and examined Admitted with spreading cellulitis of left lower extremity Cellulitis improved a lot as of today and there is no open wound in the leg No fever and/or chills and white count is down On examination Hemodynamically stable Chest-clear to auscultate bilaterally Heart- regular Abdomen-benign Legs-trace edema bilaterally, left lower leg more than the right, minor skin abrasion involving the left lower leg No adjoining cellulitis and no drainage Assessment and plan Has spreading cellulitis left lower extremity likely secondary to strep/staph organism Agree with assessment and plan as outlined by Letitia lombardo CNRP Dr. Reynaldo Kelly (Ilda Kelly M.D.) Subjective Patient seen and examined. Sitting up in a chair at the bedside. Reports he is feeling well. Reports he feels sore all over from his fall. No chest pain, shortness of breath, lightheadedness, dizziness. Denies abdominal pain or nausea. (Letitia Lombardo CRNP) Objective Vital Signs Date Time Temp Pulse Resp B/P (MAP) Pulse Ox O2 Delivery O2 Flow Rate FiO2 03/21/18 08:00 94 Room Air 03/21/18 07:30 36.6 58 20 116/69 (85) 94 2.0 03/21/18 00:20 Nasal Cannula 1.0 03/20/18 23:22 37.0 67 18 125/73 (90) 93 2.0 03/20/18 16:00 91 Nasal Cannula 1.0 03/20/18 15:27 36.4 66 20 149/77 (101) 96 Nasal Cannula 2.0 03/20/18 14:40 36.7 77 18 184/69 (107) 96 Nasal Cannula 03/20/18 14:18 96 Room Air 03/20/18 14:02 68 24 146/78 96 Room Air (Letitia Lombardo CRNP) Physical Exam General Appearance: no apparent distress Respiratory/Chest: lungs clear, normal breath sounds, no respiratory distress Cardiovascular: regular rate, rhythm, + normal peripheral pulses, + pertinent finding (+2 edema BLE) Abdomen: normal bowel sounds, non tender, soft Neurologic/Psychiatric: alert, oriented x 3 Skin: + pertinent finding (Erythema and warmth to the left lower extremity much improved from yesterday; dried, scabbed over wounds noted to left ankle) (Letitia Lombardo CRNP) Laboratory Results Item Value Date Time White Blood Count 7.55 K/uL 03/21/18710 Hemoglobin 11.0 g/dL L 03/21/18710 Hematocrit 34.1 % L 03/21/18 07 Platelet Count 182 K/uL 03/21/18710 Sodium Level 143 mmol/L 03/21/18710 Potassium Level 3.8 mmol/L 03/21/18710 Blood Urea Nitrogen 15 mg/dl 03/21/18710 Creatinine 1.20 mg/dl 03/21/18710 (Letitia Lombardo CRNP) Assessment and Plan GENERALIZED WEAKNESS, MECHANICAL FALL LEFT LOWER EXTREMITY CELLULITIS -Admitted to [facility] -Patient presenting from home after a fall and being unable to get up off the floor; [place] the beach [place] 2 [place] and suffered a sunburn to his left lower extremity and has not felt well since that time -In the ED, imaging negative for acute findings -Significant erythema noted to left lower extremity which is warm to touch noted on yesterday which is much improved today -Dried, scabbed over wounds noted to the left ankle that are not currently draining -No signs of sepsis; afebrile, no leukocytosis, negative lactic acid -Receive Zosyn (day 2) and vancomycin (day 2); given significant improvement of left lower extremity, afebrile, and no leukocytosis will transition to Augmentin today -PT/OT evaluations pending HISTORY OF CAD -Stable, no reports of chest pain -Continue aspirin, statin, beta-katie DIASTOLIC CHF SECONDARY TO VALVULAR DISEASE -Appears euvolemic -Continue home dose of furosemide HISTORY OF BIOPROSTHETIC AORTIC VALVE REPLACEMENT DM TYPE II -Hgb A1c 6.1 04/2017 -Lantus and NovoLog per protocol while hospitalized HYPERTENSION -BP controlled, continue atenolol and lisinopril BPH -Continue tamsulosin DVT PROPHYLAXIS -SQ heparin CODE STATUS -Patient is a full code as per my discussion with him admission. DISPOSITION -PT OT eval is pending -Case management to follow (Letitia Lombardo CRNP)
[2018-03-21 15:19] VITALS: BP 120/50; PULSE 62; TEMP 36.7; O2SAT 90
[2018-03-21] MEDS: INSULIN GLARGINE SOLOSTAR 100 UNITS/ML 3 ML PEN SC SCH (20:56)
[2018-03-21] MEDS ORDERED: COUGH DROP (SUGAR FREE) LOZ 24 LOZ/1 BOX LOZ PRN (21:15)
[2018-03-21 23:32] VITALS: BP 150/80; PULSE 68; TEMP 36.9; O2SAT 88
[2018-03-22] MEDS: HEPARIN SOD 5000 UNIT/0.5 ML CARP SQ SCH ×2 (06:03→13:26)
[2018-03-22 06:59] VITALS: BP 174/99; PULSE 68; TEMP 36.6; O2SAT 89
[2018-03-22 07:24] LABS: HEMATOCRIT 36.9 % (42-52); MEAN CELL VOLUME 95.6 fL (80-100); MEAN CORPUSCULAR HEMOGLOBIN 31.1 pg (25-34); MEAN CORPUSCULAR HGB CONC 32.5 g/dl (32-36); PLATELET COUNT 180 K/uL (130-400); RED CELL DISTRIBUTION WIDTH CV 13.9 % (11.5-14.5); RED CELL DISTRIBUTION WIDTH SD 47.2 fL (36.4-46.3); WHITE BLOOD COUNT 6.62 K/uL (4.8-10.8)
[2018-03-22] MEDS ORDERED: VANCOMYCIN TROUGH ONE (07:30)
[2018-03-22 07:47] LABS: CALCIUM 8.7 mg/dl (8.5-10.1); CREATININE 1.13 mg/dl (0.60-1.40); POTASSIUM 3.7 mmol/L (3.5-5.1)
[2018-03-22 08:09] VITALS: O2SAT 92
[2018-03-22] MEDS: LISINOPRIL 10 MG TAB PO SCH (08:20)
[2018-03-22] MEDS: TAMSULOSIN HCL 0.4 MG CAP PO SCH (08:20)
[2018-03-22] MEDS: AMOXICILLIN/CLAVULANATE TAB 875 MG TAB PO SCH ×2 (08:20→17:02)
[2018-03-22] MEDS: CYANOCOBALAMIN 500 MCG TAB (VIT B-12) PO SCH (08:20)
[2018-03-22] MEDS: ASPIRIN 81 MG ECTAB PO SCH (08:21)
[2018-03-22] MEDS: ATORVASTATIN 20 MG TAB PO SCH (08:21)
[2018-03-22] MEDS: INSULIN ASPART 100 UNITS/ML 3 ML PEN SC SCH ×3 (08:22→17:03)
[2018-03-22] MEDS: ACETAMINOPHEN 325 MG TAB PO PRN (08:27)
[2018-03-22 11:25] VITALS: BP 145/85; PULSE 57; TEMP 36.4; O2SAT 95
--- NOTE | 2018-03-22 11:40 | Hospitalist Progress Note ---
Hospitalist Progress Note Date of Service Mar 22, 2018. (Letitia Saez CRNP) Attending addendum: The patient is seen and examined in medical floor His left leg is much better, swelling is improved, leg wounds are dry, denies any pain Awaiting physical therapy and recommendation On examination No apparent distress Out of bed on a chair Chest-clear to auscultate bilaterally Heart-regular, no murmur appreciated Abdomen-distended, soft, nontender, bowel sounds present Extremities-trace edema on the right Left mid leg has superficial ulceration, dry, swelling which much improved and no surrounding inflammation OUTREACH ANALYST-alert, awake and oriented 3 Assessment and plan Left leg spreading cellulitis-improved Continue oral antibiotic PT evaluation for possible placement Agree with assessment and plan Dr. Reynaldo Kelly (Ilda Kelly M.D.) Subjective Patient seen and examined. Feeling somewhat better today. Denies chest pain or shortness of breath. No lightheadedness or dizziness. Denies abdominal pain and nausea. (Letitia Saez CRNP) Objective Vital Signs Date Time Temp Pulse Resp B/P (MAP) Pulse Ox O2 Delivery O2 Flow Rate FiO2 03/22/18 11:25 36.4 57 18 145/85 (105) 95 03/22/18 08:09 92 Room Air 03/22/18 08:00 Room Air 03/22/18 06:59 36.6 68 20 174/99 (124) 89 Room Air 03/22/18 00:00 Room Air 03/21/18 23:32 36.9 68 18 150/80 (103) 88 Room Air 03/21/18 16:00 Room Air 03/21/18 15:19 36.7 62 16 120/50 (73) 90 Room Air (Letitia Saez, BLADIMIR) Physical Exam General Appearance: no apparent distress Respiratory/Chest: no respiratory distress, + decreased breath sounds ( Bilateral bases) Cardiovascular: regular rate, rhythm, + pertinent finding (+2 edema BLE) Abdomen: normal bowel sounds, non tender, soft Neurologic/Psychiatric: alert, oriented x 3 Skin: + pertinent finding (Erythema to left lower extremity continues to improve, dried, scabbed over wounds noted to the left ankle without drainage) (Letitia Saez CRNP) Laboratory Results Item Value Date Time White Blood Count 6.62 K/uL 8/24/18 0700 Hemoglobin 12.0 g/dL L 03/22/18699 Hematocrit 36.9 % L 03/22/18699 Platelet Count 180 K/uL 03/22/18699 Sodium Level 142 mmol/L 03/22/18699 Potassium Level 3.7 mmol/L 03/22/18699 Blood Urea Nitrogen 15 mg/dl 03/22/18699 Creatinine 1.13 mg/dl 03/22/18699 (Letitia Saez CRNP) Assessment and Plan GENERALIZED WEAKNESS, MECHANICAL FALL LEFT LOWER EXTREMITY CELLULITIS -Admitted to [facility] -Patient presenting from home after a fall and being unable to get up off the floor; [place] the beach [place] 2 [place] ago and suffered a sunburn to his left lower extremity and has not felt well since that time -In the ED, imaging negative for acute findings -Significant erythema noted to left lower extremity which was warm to touch continues to have significant improvement -Dried, scabbed over wounds noted to the left ankle that are not currently draining -No signs of sepsis; afebrile, no leukocytosis, negative lactic acid -Receive Zosyn (2 days) and vancomycin (2 days); transitioned to Augmentin on -PT/OT evaluations pending HISTORY OF CAD -Stable, no reports of chest pain -Continue aspirin, statin, beta-katie DIASTOLIC CHF SECONDARY TO VALVULAR DISEASE -Appears euvolemic -Continue home dose of furosemide HISTORY OF BIOPROSTHETIC AORTIC VALVE REPLACEMENT DM TYPE II -Hgb A1c 6.1 04/2017 -Lantus and NovoLog per protocol while hospitalized HYPERTENSION -BP controlled, continue atenolol and lisinopril BPH -Continue tamsulosin DVT PROPHYLAXIS -SQ heparin CODE STATUS -Patient is a full code as per my discussion with him admission. DISPOSITION -Stable for discharge, awaiting PT/OT evaluations -May need placement for rehab, awaiting recommendations (Letitia Saez CRNP)
[2018-03-22 14:32] VITALS: BP 120/63; PULSE 58; TEMP 36.4; O2SAT 91
[2018-03-22] MEDS ORDERED: NURSING DECISION MEDICATION ORDER SCH (16:15)
[2018-03-22] MEDS ORDERED: AMOX1TAB43 PO (16:22)
[2018-03-22] MEDS ORDERED: MICONAZOLE NITRATE POWDER 43 GM EXT PRN (16:30)
--- NOTE | 2018-03-22 16:30 | Discharge Instructions ---
Discharge Instructions Date of Service Mar 22, 2018. Admission Reason for Admission: Cellulitis Discharge Discharge Diagnosis / Problem: Left leg cellulitis Discharge Goals Goal(s): Decrease discomfort, Improve function Activity Recommendations Activity Level: Up Ad Danica Therapies: Physical Therapy, Occupational Therapy Shower/Bathe: no limitations . Additional Information Patient informed of condition: Yes Advance Directives: No DNR: No Level of Care: Skilled Communicable Disease: No Prognosis: Stable Instructions / Follow-Up Instructions / Follow-Up Patient was admitted for cellulitis of the left leg. He initially received IV antibiotics and improved greatly and was transitioned to Augmentin. He has dried wounds to the left ankle which should be kept clean and dry. No dressings are needed at this time. He was evaluated by PT and OT and their recommendations were for penitentiary care. Follow-up with the provider at [facility] within 24 hours of arrival. Current Hospital Diet Patient's current hospital diet: AHA Diet (Heart Healthy), Diabetes Type 2 Diet Discharge Diet Recommended Diet: AHA Diet (Heart Healthy), Diabetes Type 2 Diet Pending Studies Studies pending at discharge: no Laboratory Results Hemoglobin A1c Test 03/21/18 07:11 Range/Units Estimated Average Glucose 140 mg/dl Hemoglobin A1c 6.5 H 4.5-5.6 % Medical Emergencies . Who to Call and When: Medical Emergencies: If at any time you feel your situation is an emergency, please call 911 immediately. . Non-Emergent Contact Non-Emergency issues call your: Primary Care Provider . . "Provider Documentation" section prepared by Letitia Saez. . Core Measure Problem Core Measures: None
--- NOTE | 2018-03-22 16:36 | Discharge Summary ---
Discharge Summary Date of Service Mar 22, 2018. 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 No acute lumbar spine fracture or subluxation identified. 2. Study mildly compromised by artifact. 3. Old L2 compression fracture with minimal loss of vertebral body height. 4. Grade I anterolisthesis of L5 on S1 due to bilateral L5 pars defects. This is unchanged. 5. Moderate multilevel degenerative disc disease and severe multilevel facet arthrosis of the lumbar spine. HEAD CT IMPRESSION: No acute intracranial abnormality CXR IMPRESSION: No active disease in the chest. Pending Studies/Follow-Up: Patient to be seen by provider at [facility] within 24 hours of arrival. Medication Reconciliation New Medications: Amoxicillin & Pot Clavulanate (Amoxicillin/Clavulanate P) 1 Tab Tab 875 MG PO BIDM for 7 Days, #14 TAB Continued Medications: Aspirin (Aspirin Ec) 81 Mg Tab 162 MG PO DAILY Atenolol (Atenolol) 50 Mg Tab 50 MG PO DAILY Atorvastatin (Lipitor) 20 Mg Tab 20 MG PO DAILY, TAB Cyanocobalamin (Vitamin B-12) 50 Mcg Tab 500 MG PO DAILY Docusate Sodium (Colace) 100 Mg Cap 100 MG PO BID PRN for Constipation Furosemide (Lasix) 40 Mg Tab 40 MG PO Q2D Insulin Glargine (Lantus Solostar) 100 Unit/Ml Inj 20 UNITS SC HS, PEN Lisinopril (Lisinopril) 10 Mg Tab 10 MG PO DAILY Lutein-Zeaxanthin (Lutein) 1 Cap Cap 1 CAP PO DAILY Misc Natural Products (Osteo Bi-Flex Advanced Do) 1 Tab Tab 1 CAP PO DAILY Nitroglycerin (Nitrostat) 0.4 Mg Tab 0.4 MG UT PRN, BTL Take one tab under the tongue every 5 minutes as needed for chest pain. take no more than 3 doses. If pain is not relieved by 3 doses call 911. Tamsulosin Hcl (Flomax) 0.4 Mg Cap 0.4 MG PO DAILY, 5 Refills Admission Information HPI (per Admitting provider): 69-year-old male who presents the ED after a fall. Patient reports he was getting ready to go to bed last evening in his recliner chair where he typically sleeps and slipped on the carpeting and fell over the arm of the chair into the fireplace. He denies associated lightheadedness, dizziness, syncopal event. He did not strike his head. Patient reports he was unable to get up. He crawled around on the floor however was still unable to stand. He did not call for help. His found him this morning. About 2 weeks ago, patient was at the beach and he suffered a sunburn to his left leg. He reports it blistered and he was picking at the skin. He reports he has not felt well since having the sunburn. His leg has been painful. He denies having fevers and chills. He reports some chest wall pain after the fall. He denies shortness of breath. No abdominal pain, nausea, vomiting, diarrhea. He denies any urinary symptoms. In the ED, patient's imaging is negative for acute findings. Exam is notable for a left lower extremity cellulitis. WBC is 11.8K and vitals are stable. Patient was given IVF, IV morphine, IV Zosyn. Physical Exam (per Admitting): General Appearance: WD/WN, no apparent distress Head: normocephalic, atraumatic Eyes: normal inspection, EOMI, sclerae normal ENT: hearing grossly normal, + pertinent finding (Mucous members moist) Neck: supple, no JVD, trachea midline Respiratory/Chest: no respiratory distress, + decreased breath sounds Cardiovascular: regular rate, rhythm, normal peripheral pulses, + pertinent finding (+1-2 edema BLE) Abdomen/GI: normal bowel sounds, non tender, soft, no organomegaly Extremities/Musculoskelatal: normal inspection, no calf tenderness, normal capillary refill Neurologic/Psych: no motor/sensory deficits, alert, normal mood/affect, oriented x 3 Skin: warm/dry, + pertinent finding (Erythema noted to the left lower extremity extending from the ankle to the knee, extremity warm to touch, dried scabbed over wounds noted to the ankle area without drainage) Hospital Course GENERALIZED WEAKNESS, MECHANICAL FALL LEFT LOWER EXTREMITY CELLULITIS -Admitted to [facility] -Patient presenting from home after a fall and being unable to get up off the floor; was at the beach approximately 2 weeks ago and suffered a sunburn to his left lower extremity and has not felt well since that time -In the ED, imaging negative for acute findings -No signs of sepsis; afebrile, no leukocytosis, negative lactic acid -Patient had significant erythema and warmth to the left lower extremity on presentation which improved significantly with Zosyn (2 days) and vancomycin (2 days) -Dried, scabbed over wounds noted to the left ankle that are not currently draining -Patient was transitioned to Augmentin on 03/21; he will need 10 days of total treatment -Patient was evaluated by PT/OT who recommended group home placement for rehab. 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 Discharge Instructions Discharge Instructions Date of Service Mar 22, 2018. Admission Reason for Admission: Cellulitis Discharge Discharge Diagnosis / Problem: Left leg cellulitis Discharge Goals Goal(s): Decrease discomfort, Improve function Activity Recommendations Activity Level: Up Ad Danica Therapies: Physical Therapy, Occupational Therapy Shower/Bathe: no limitations . Additional Information Patient informed of condition: Yes Advance Directives: No DNR: No Level of Care: Skilled Communicable Disease: No Prognosis: Stable Instructions / Follow-Up Instructions / Follow-Up Patient was admitted for cellulitis of the left leg. He initially received IV antibiotics and improved greatly and was transitioned to Augmentin. He has dried wounds to the left ankle which should be kept clean and dry. No dressings are needed at this time. He was evaluated by PT and OT and their recommendations were for group home care. Follow-up with the provider at [facility] within 24 hours of arrival. Current Hospital Diet Patient's current hospital diet: AHA Diet (Heart Healthy), Diabetes Type 2 Diet Discharge Diet Recommended Diet: AHA Diet (Heart Healthy), Diabetes Type 2 Diet Pending Studies Studies pending at discharge: no Laboratory Results Hemoglobin A1c Test 03/21/18 07:11 Range/Units Estimated Average Glucose 140 mg/dl Hemoglobin A1c 6.5 H 4.5-5.6 % Medical Emergencies . Who to Call and When: Medical Emergencies: If at any time you feel your situation is an emergency, please call 911 immediately. . Non-Emergent Contact Non-Emergency issues call your: Primary Care Provider . . "Provider Documentation" section prepared by Letitia Saez. . Core Measure Problem Core Measures: None Additional Copies To José Manuel Chisholm M.D.
[2018-03-22 16:57] VITALS: BP 120/63; PULSE 58; TEMP 36.4; O2SAT 91
== END 2018-03-22 18:33 | DRG 603 ==
LOC: EDBD 10:10 → C.EDB 10:11 → C.MS2W 13:32 → ENRESERV 13:38
PROVIDERS: ADMIT Family Medicine; ATTEND Internal Medicine
DX: L03.116 Cellulitis of left lower limb (principal); I13.0 Hypertensive heart and chronic kidney disease with heart failure and stage 1 through stage 4 chronic kidney disease, or unspecified chronic kidney disease; I50.30 Unspecified diastolic (congestive) heart failure; I25.10 Atherosclerotic heart disease of native coronary artery without angina pectoris; N18.3 Chronic kidney disease, stage 3 (moderate); N40.0 Benign prostatic hyperplasia without lower urinary tract symptoms; E11.21 Type 2 diabetes mellitus with diabetic nephropathy; M54.5 Low back pain; E78.5 Hyperlipidemia, unspecified; Z96.643 Presence of artificial hip joint, bilateral; Z95.1 Presence of aortocoronary bypass graft; Z95.2 Presence of prosthetic heart valve; W19.XXXA Unspecified fall, initial encounter; Y92.019 Unspecified place in single-family (private) house as the place of occurrence of the external cause